=== PATIENT | female | born 1990 | race Caucasian/White ===

== ENCOUNTER 2019-06-23 22:48 | Emergency (ER) | payer OTHER ==
[~2019-06-23] VITALS: Ht 170.2 cm; Wt 125.2 kg
[~2019-06-23 22:48] MED LIST: CETI10CA PO
[2019-06-23 22:58] VITALS: Ht 170.2 cm; Wt 125.2 kg
[2019-06-24 00:24] VITALS: BP 118/77; PULSE 103; RESP 20
[2019-06-24] MEDS ORDERED: LORATADINE 10 MG TAB PO ONE (00:30)
[2019-06-24] MEDS ORDERED: OXYMETAZOLINE 0.05% NASAL SPRAY (15 ML) NASAL ONE (00:30)
== END 2019-06-24 00:50 | disposition home or self-care (01) ==
LOC: FTE 22:48
DX: R04.0 Epistaxis (principal)